=== PATIENT | male | born 1990 | race Caucasian/White ===

== ENCOUNTER 2018-12-17 06:14 | Emergency (ER) | payer OTHER ==
[2018-12-17 06:22] VITALS: Ht 167.6 cm
[2018-12-17 08:26] VITALS: BP 130/80
== END 2018-12-17 08:26 | disposition home or self-care (01) ==
LOC: ED 06:14
DX: F15.129 Other stimulant abuse with intoxication, unspecified (principal); R44.1 Visual hallucinations; F17.210 Nicotine dependence, cigarettes, uncomplicated
CPT/HCPCS: 99406; J2060